=== PATIENT | female | born 1990 ===

== ENCOUNTER 2017-09-21 15:06 | Emergency (ER) | payer OTHER ==
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
== END 2017-09-21 16:05 | disposition home or self-care (01) ==
LOC: UCEAST 15:06
DX: R00.2 Palpitations (principal)
CPT/HCPCS: 93005; 99201; G0463